=== PATIENT | female | born 1960 | race Caucasian/White ===

== ENCOUNTER → 2020-10-19 | Outpatient (CLI) | payer BC ==
[~2020-10-19] MED LIST: CALCIUM 600 +1 EAC7 PO; CRESTOR10 MG PO; DAILY VALUE1 EACH PO; FIBER PO; FIBERCON625 MG PO; LEVOTHYROXINE25 MC1 PO; MOBIC15 MG PO; VITAMIN B12 SL
[2020-10-19 13:59] LABS: HEMOGLOBIN 13.4 gm/dl (12.3-15.3); RED BLOOD COUNT 4.49 M/UL (4.00-5.10)
== END ==
LOC: OPSV2 10-15 11:00
PROVIDERS: Obstetrics & Gynecology
DX: Z01.812 Encounter for preprocedural laboratory examination (principal); N85.00 Endometrial hyperplasia, unspecified
CPT/HCPCS: 36415; 85025

== ENCOUNTER → 2020-10-20 | Day surgery (SDC) | payer BC | END | disposition home or self-care (01) | LOC: OR 08:53 | DX: C54.1 Malignant neoplasm of endometrium (principal); E05.90 Thyrotoxicosis, unspecified without thyrotoxic crisis or storm; E78.5 Hyperlipidemia, unspecified; M19.90 Unspecified osteoarthritis, unspecified site; Z88.0 Allergy status to penicillin; Z88.8 Allergy status to other drugs, medicaments and biological substances; Z79.899 Other long term (current) drug therapy | CPT/HCPCS: J1100; J2001; J2250; J2405; J2704; J3010; J7120 ==